=== PATIENT | male | born 1990 | race Caucasian/White ===

== ENCOUNTER 2021-11-10 12:30 | Emergency (ER) | payer MEDICAID ==
[~2021-11-10] VITALS: Ht 180.3 cm; Wt 86.4 kg
[2021-11-10] MEDS ORDERED: FINA-27 PO (12:45)
[2021-11-10] MEDS ORDERED: SILD25 PO (12:45)
[2021-11-10] MEDS ORDERED: DiphenhydrAMINE HCL 50 MG/ML VIAL IM ONE (13:30)
[2021-11-10] MEDS ORDERED: MethylPREDNISolone SOD SUCC 125 MG/2 ML VIAL IM ONE (13:30)
[2021-11-10] MEDS ORDERED: PRED-554 PO (13:36)
[2021-11-10 14:45] VITALS: BP 140/83
== END 2021-11-10 15:06 | disposition home or self-care (01) ==
LOC: EMS 12:33
DX: T78.1XXA Other adverse food reactions, not elsewhere classified, initial encounter (principal); Z91.010 Allergy to peanuts; Z91.018 Allergy to other foods; F41.9 Anxiety disorder, unspecified; E78.00 Pure hypercholesterolemia, unspecified; X58.XXXA Exposure to other specified factors, initial encounter
CPT/HCPCS: 99284; 96372; J1200; J2930